=== PATIENT | female | born 1970 | race African-American/Black ===

== ENCOUNTER 2017-01-22 17:14 | Emergency (ER) | payer BC ==
[~2017-01-22] VITALS: Ht 175.3 cm; Wt 90.0 kg
[2017-01-22] MEDS ORDERED: HYDROCODONE/ACETAMINOPHEN 5/325MG TABLET PO ONE (21:30)
[2017-01-22 22:09] LABS: HCG SCREEN NEGATIVE
[2017-01-22 23:59] VITALS: BP 149/79
== END 2017-01-23 00:24 | disposition home or self-care (01) ==
LOC: ER 17:59
DX: M25.562 Pain in left knee (principal); E05.90 Thyrotoxicosis, unspecified without thyrotoxic crisis or storm; I10 Essential (primary) hypertension
CPT/HCPCS: 73562; 73590; 84703; 99285; Z7610